=== PATIENT | female | born 1990 | race Caucasian/White ===

== ENCOUNTER 2017-08-26 05:37 | Inpatient (IN) | payer MEDICAID ==
[2017-08-26] VITALS (30 sets, daily range): BP systolic 103–121; BP diastolic 54–75; PULSE 75–97; RESP 8–18; TEMP 97.6–98.5; O2SAT 97–100
[~2017-08-26] VITALS: Ht 170.2 cm; Wt 101.0 kg
[~2017-08-26 05:37] MED LIST: IBUP600 PO; PREN0.01 PO
[2017-08-26] MEDS ORDERED: LACTATED RINGER'S 1000 ML IV ONE (06:00)
[2017-08-26] MEDS ORDERED: LACTATED RINGER'S 1000 ML IV SCH (06:00)
[2017-08-26] MEDS ORDERED: CITRIC ACID-SODIUM CITRATE LIQ 30 ML UDC PO SCH (06:00)
[2017-08-26] MEDS ORDERED: CLINDAMYCIN 600 MG/NS 100 ML IV SCH ×2 (06:00)
[2017-08-26 06:22] LABS: AUTOMATED NEUTROPHIL # 5.4 TH/MM3 (1.8-7.7); BASOPHIL % 0.2 % (0.0-2.0); EOSINOPHIL # 0.1 TH/MM3 (0-0.4); EOSINOPHIL % 1.3 % (0.0-4.0); HEMATOCRIT 27.9 % (35.0-46.0); HEMOGLOBIN 9.5 GM/DL (11.6-15.3); LYMPHOCYTE # 2.2 TH/MM3 (1.0-4.8); MEAN CELL VOLUME 80.8 FL (80.0-100.0); MEAN CORPUSCULAR HEMOGLOBIN 27.5 PG (27.0-34.0); MEAN PLATELET VOLUME 7.1 FL (7.0-11.0); MONO % 5.3 % (0.0-8.0); MONOCYTE # 0.4 TH/MM3 (0-0.9); NEUT % 66.2 % (16.0-70.0); PLATELET COUNT 289 TH/MM3 (150-450); RED BLOOD COUNT 3.45 MIL/MM3 (4.00-5.30); RED CELL DISTRIBUTION WIDTH 15.6 % (11.6-17.2); WHITE BLOOD COUNT 8.1 TH/MM3 (4.0-11.0)
[2017-08-26 06:29] LABS: BACTERIA, URINE FEW /hpf; BILIRUBIN, URINE NEG (NEG); BLOOD, URINE NEG (NEG); GLUCOSE,URINE NEG (NEG); KETONE, URINE NEG (NEG); MUCUS URINE FEW /lpf (OCC); NITRITE,URINE NEG (NEG); SQUAMOUS EPITHELIAL CELL URINE 8 /hpf (0-5); URINE COLOR YELLOW (YELLW/STRAW); URINE LEUKOCYTE ESTERASE MOD (NEG)
[2017-08-26] MEDS ORDERED: ACETAMINOPHEN 1000 MG/100 ML 100 ML IV ONE (06:43)
[2017-08-26] MEDS ORDERED: MORPHINE SULFATE PF 5 MG/10 ML VIAL ONE (06:43)
[2017-08-26] MEDS ORDERED: ROPIVACAINE 0.5% PF INJ 30 ML VIAL ONE (08:22)
[2017-08-26] MEDS ORDERED: DEXAMETHASONE SOD PHOS PF 10 MG/ML VIAL ONE (08:22)
[2017-08-26] MEDS ORDERED: KETOROLAC TROMETHAMINE 60 MG/2 ML (IM) VIAL IM PRN (08:30)
[2017-08-26] MEDS ORDERED: oxyCODONE/ACETAMINOPHEN 5 MG/325 MG TAB PO PRN (08:30)
[2017-08-26] MEDS ORDERED: ZOLPIDEM TARTRATE 5 MG TAB PO PRN (08:30)
[2017-08-26] MEDS ORDERED: SODIUM CHLORIDE 0.9% FLUSH 10 ML FLUSH IV FLUSH PRN (08:30)
[2017-08-26] MEDS ORDERED: OXYTOCIN 30 UNITS-500ML PREMIX 500 ML IV ONE (08:30)
[2017-08-26] MEDS ORDERED: ONDANSETRON HCL 4 MG/2 ML VIAL IV PUSH PRN (08:30)
[2017-08-26] MEDS ORDERED: ACETAMINOPHEN 325 MG TAB PO PRN (08:30)
[2017-08-26] MEDS ORDERED: SIMETHICONE 80 MG CHEWABLE TAB PO PRN (08:30)
--- NOTE | 2017-08-26 08:37 | MH ---
cc: GIULIANO SAHNI DATE OF ADMISSION: 08/26/2017 HISTORY OF PRESENT ILLNESS She is 27 years old, 3, para 1-0-1-1 with intrauterine at 39 weeks, desires repeat section. care has been with [facility] [employer] OPERATOR, uncomplicated. PAST OB HISTORY Significant for one at term for failure to progress and one SAB. PAST AQUACULTURE WORKER HISTORY Unremarkable. PAST MEDICAL HISTORY She denies hypertension, diabetes or asthma. PAST SURGICAL HISTORY Significant for a . SOCIAL HISTORY She denies toxic habits. MEDICATIONS She takes vitamins. ALLERGIES ALLERGIC TO PENICILLIN. States that her throat swells up, severe allergy. PHYSICAL EXAMINATION VITAL SIGNS: On physical exam her vital signs are stable. She is afebrile. HEAD, HEART, CHEST and LUNG EXAMS: Within normal limits. ABDOMEN: Soft, nontender, gravid. PELVIC EXAM: Deferred. EXTREMITIES: No edema, cyanosis, clubbing, nontender. ASSESSMENT AND PLAN She is 27 years old, 3, para 1-0-1-1 with intrauterine at 39 weeks for elective repeat section. The risks, benefits and alternatives have been explained to the patient. All of her questions have been answered and consents have been signed. MD STANLEY Ramos/RICK /8:13 AM /8:16 AM
--- NOTE | 2017-08-26 08:51 | MP ---
cc: GIULIANO CORONADO DATE OF SURGERY: 08/26/2017 PREOPERATIVE DIAGNOSIS Intrauterine at 39-weeks, desires elective repeat section. POSTOPERATIVE DIAGNOSIS Intrauterine at 39-weeks, desires elective repeat section. PROCEDURE Repeat lower segment transverse section via Pfannenstiel skin incision. SURGEON Dr. Coronado ANESTHESIA Spinal. FLUIDS 1700 ccs crystalloid. ESTIMATED BLOOD LOSS 800 ccs. URINE OUTPUT 200 ccs clear yellow at the end of the procedure. FINDINGS A live male was delivered vertex presentation. weight was 3900 grams, 8 pounds 10 ounces. PROCEDURE The patient was taken to the operating room where spinal anesthesia was found to be adequate. She was then prepped and draped in the normal sterile fashion in the dorsal supine position with a leftward tilt. A Pfannenstiel skin incision was made with a scalpel and carried down to the underlying layer of fascia. The fascia was nicked in the midline. The incision was extended laterally with curved Llamas scissors. Attention was turned to the inferior aspect of the incision which was grasped with Aaron clamps, elevated and the rectus muscles dissected off sharply. Attention was turned to the superior aspect of the incision which was grasped with Aaron clamps, elevated and the rectus muscles dissected off sharply. The rectus muscles were in the midline and the peritoneum was identified, grasped between two Jacqueline clamps, elevated and entered sharply with Metzenbaum scissors. This incision was extended superiorly and inferiorly with good visualization of the bladder. The bladder blade was inserted. The vesicouterine peritoneum was identified, grasped with pickups and entered sharply with Metzenbaum scissors. This incision was extended laterally and bladder flap created digitally. The lower uterine segment was incised in a transverse fashion with a scalpel. Clear amniotic fluid was noted. The incision was extended laterally with bandage scissors. The vertex was delivered. The oral and nasopharynx were bulb suctioned with a syringe. The shoulders were delivered atraumatically. The cord was clamped x2 and cut after waiting for 45 seconds. The placenta was delivered manually and sent for donation. The uterus was cleared of all clots and debris. The uterine incision was repaired in two layers with one Vicryl. Hemostasis was assured. The gutters were cleared of all clots and debris. The fascia was reapproximated in a running fashion with 0 Vicryl. The skin incision was closed with jonathan. A pressure dressing was applied. The sponge, lap, needle and instrument counts were correct x3. The patient was transferred to the recovery room in stable condition. MD STANLEY Ramos/STEFANIE /8:15 AM /8:21 AM
[2017-08-26] MEDS: SODIUM CHLORIDE 0.9% FLUSH 10 ML FLUSH IV FLUSH SCH ×2 (09:00→21:15)
[2017-08-26] MEDS ORDERED: PROMETHAZINE INJ 25 MG/ML VIAL IM PRN (11:15)
[2017-08-26] MEDS ORDERED: PHENYLEPH/NS 1000 MCG/10 ML SYR IV ONE (12:00)
[2017-08-26] MEDS ORDERED: ePHEDrine/NS 25 MG/5 ML SYRINGE IV ONE (12:00)
[2017-08-26] MEDS ORDERED: OXYTOCIN 10 UNIT/ML AMP IV ONE (12:00)
[2017-08-26] MEDS ORDERED: ONDANSETRON HCL 4 MG/2 ML VIAL IV ONE (12:00)
[2017-08-26] MEDS ORDERED: LACTATED RINGER'S 1000 ML INJ 2,000 ML IV ONE (12:00)
[2017-08-26] MEDS ORDERED: DEXAMETHASONE SOD PHOS 4 MG/ML VIAL IV ONE (12:00)
[2017-08-26] MEDS ORDERED: LACTATED RINGER'S 1000 ML INJ 1,000 ML IV SCH (13:23)
[2017-08-26] MEDS ORDERED: OXYTOCIN 30 UNITS-500ML PREMIX 500 ML IV PRN (18:30)
[2017-08-26] MEDS: IBUPROFEN 600 MG TAB PO PRN (22:47)
[2017-08-27 01:00] VITALS: BP 109/62; PULSE 56; RESP 16; TEMP 97.9
[2017-08-27 05:48] LABS: AUTOMATED NEUTROPHIL # 6.6 TH/MM3 (1.8-7.7); BASOPHIL % 0.1 % (0.0-2.0); EOSINOPHIL % 0.2 % (0.0-4.0); LYMPH % 22.5 % (9.0-44.0); LYMPHOCYTE # 2.1 TH/MM3 (1.0-4.8); MEAN CELL VOLUME 81.8 FL (80.0-100.0); MEAN CORPUSCULAR HEMOGLOBIN 26.9 PG (27.0-34.0); MEAN CORPUSCULAR HGB CONC 32.8 % (32.0-36.0); MEAN PLATELET VOLUME 7.1 FL (7.0-11.0); MONO % 6.6 % (0.0-8.0); MONOCYTE # 0.6 TH/MM3 (0-0.9); NEUT % 70.6 % (16.0-70.0); PLATELET COUNT 186 TH/MM3 (150-450); RED BLOOD COUNT 2.41 MIL/MM3 (4.00-5.30); RED CELL DISTRIBUTION WIDTH 15.8 % (11.6-17.2); WHITE BLOOD COUNT 9.4 TH/MM3 (4.0-11.0)
[2017-08-27 05:49] LABS: HEMOGLOBIN 6.5 GM/DL (11.6-15.3)
[2017-08-27 05:50] LABS: HEMATOCRIT 19.7 % (35.0-46.0)
[2017-08-27] MEDS: IBUPROFEN 600 MG TAB PO PRN ×3 (07:49→22:16)
[2017-08-27 08:00] VITALS: BP 120/73; PULSE 75; RESP 18; TEMP 97.8
--- NOTE | 2017-08-27 08:45 | HHI.OB ---
Subjective Post Operative Day: 1 Remarks up showering and feels well despite low hgb willing to take venifer Objective Vitals/I&O Vital Signs Date Time Temp Pulse Resp B/P (MAP) Pulse Ox O2 Delivery O2 Flow Rate FiO2 08/27/17 01:00 56 16 109/62 (78) 08/27/17 01:00 97.9 08/26/17 20:00 98.5 82 16 103/54 (70) 97 08/26/17 18:19 18 08/26/17 17:25 82 16 116/62 (80) 08/26/17 17:25 98.2 08/26/17 15:42 18 08/26/17 15:00 8 08/26/17 15:00 18 08/26/17 14:00 18 08/26/17 13:00 16 08/26/17 12:00 112/67 (82) 08/26/17 12:00 97.8 86 18 08/26/17 10:15 98.0 75 18 107/68 (81) 08/26/17 09:31 97.6 18 100 08/26/17 09:31 86 121/56 (77) 08/26/17 09:16 119/55 (76) 08/26/17 09:14 91 18 100 08/26/17 09:00 118/58 (78) 08/26/17 08:59 90 18 100 08/26/17 08:45 80 18 110/57 (74) 100 Result Diagram: 08/27/17 0525 Objective Remarks GENERAL: Well-nourished, well-developed patient. CARDIOVASCULAR: Regular rate and rhythm without murmurs, gallops, or rubs. RESPIRATORY: Breath sounds equal bilaterally. No accessory muscle use. ABDOMEN/GI: Abdomen soft, non-tender, bowel sounds present. Incision: Clean, dry and intact. Fundus: Firm, non-tender at umbilicus. GENITOURINARY: Light to moderate bleeding. EXTREMITIES: No cyanosis or edema, non-tender, without signs of DVT. Medications and IVs Current Medications Medications (Trade) Dose Ordered Sig/Sonido Route Start Time Stop Time Status Last Admin Lactated Ringer's 1,000 ml @ 100 mls/hr Q10H IV 08/26/17 13:23 08/27/17 09:22 Oxytocin 500 ml @ 100 mls/hr UNSCH X1 PRN IV 08/26/17 18:30 08/27/17 18:29 (NS Flush) 2 ml BID IV FLUSH 08/26/17 09:00 (NS Flush) 2 ml UNSCH PRN IV FLUSH 08/26/17 08:30 (Mylicon Chew) 80 mg QID PRN PO 08/26/17 08:30 (Tylenol) 650 mg Q6H PRN PO 08/26/17 08:30 (Motrin) 600 mg Q6H PRN PO 08/26/17 08:30 08/27/17 07:49 (Percocet 5-325 Mg) 1 tab Q4H PRN PO 08/26/17 08:30 (Percocet 5-325 Mg) 2 tab Q4H PRN PO 08/26/17 08:30 (Светлана-Colace) 2 tab Q12H PRN PO 08/26/17 08:30 (Ambien) 5 mg HS PRN PO 08/26/17 08:30 (M-M-R Ii Inj) 0.5 ml ONCE ONCE SQ 08/27/17 16:00 08/27/17 16:01 (Boostrix Inj) 0.5 ml ONCE ONCE IM 08/27/17 16:00 08/27/17 16:01 08/26/17 21:12 (Zofran Inj) 4 mg Q6H PRN IV PUSH 08/26/17 08:30 (Phenergan Inj) 25 mg Q4H PRN IM 08/26/17 11:15 08/26/17 11:19 (Venofer Inj) 200 mg ONCE ONCE IV PUSH 08/27/17 09:00 08/27/17 09:01 Assessment/Plan Assessment and Plan POD 1 doing well venifer then dc IV repeat cbc wednesday doesn't meet discharge criteria Jolie Poole MD Aug 27, 2017 08:45
[2017-08-27] MEDS ORDERED: IRON SUCROSE 100 MG/5 ML VIAL IV PUSH ONE (09:00)
[2017-08-27] MEDS: SODIUM CHLORIDE 0.9% FLUSH 10 ML FLUSH IV FLUSH SCH ×2 (10:04→19:16)
[2017-08-27] MEDS: oxyCODONE/ACETAMINOPHEN 5 MG/325 MG TAB PO PRN ×3 (11:57→22:17)
[2017-08-27] MEDS ORDERED: DIPHTH/TETANUS/ACEL PERTUSSIS (BOOSTER) 0.5 ML VIAL/PFS IM ONE (16:00)
[2017-08-27] MEDS ORDERED: MEASLES, MUMPS, RUBELLA VACCINE 0.5 ML VIAL SQ ONE (16:00)
[2017-08-27] MEDS: DOCUSATE SODIUM 50 MG/SENNA 8.6 MG TAB PO PRN (19:19)
[2017-08-27 20:00] VITALS: BP 124/71; PULSE 76; RESP 18; TEMP 98.2
[2017-08-28] MEDS: IBUPROFEN 600 MG TAB PO PRN ×3 (04:54→20:12)
[2017-08-28] MEDS: oxyCODONE/ACETAMINOPHEN 5 MG/325 MG TAB PO PRN (04:55)
[2017-08-28 06:07] LABS: AUTOMATED NEUTROPHIL # 3.9 TH/MM3 (1.8-7.7); BASOPHIL % 0.2 % (0.0-2.0); EOSINOPHIL # 0.1 TH/MM3 (0-0.4); EOSINOPHIL % 1.6 % (0.0-4.0); HEMATOCRIT 21.3 % (35.0-46.0); LYMPH % 37.7 % (9.0-44.0); LYMPHOCYTE # 2.7 TH/MM3 (1.0-4.8); MEAN CELL VOLUME 82.4 FL (80.0-100.0); MEAN CORPUSCULAR HEMOGLOBIN 27.2 PG (27.0-34.0); MEAN PLATELET VOLUME 7.3 FL (7.0-11.0); MONO % 6.1 % (0.0-8.0); MONOCYTE # 0.4 TH/MM3 (0-0.9); NEUT % 54.4 % (16.0-70.0); PLATELET COUNT 208 TH/MM3 (150-450); RED BLOOD COUNT 2.59 MIL/MM3 (4.00-5.30); RED CELL DISTRIBUTION WIDTH 15.9 % (11.6-17.2); WHITE BLOOD COUNT 7.2 TH/MM3 (4.0-11.0)
[2017-08-28] MEDS: SODIUM CHLORIDE 0.9% FLUSH 10 ML FLUSH IV FLUSH SCH ×2 (07:25→21:00)
[2017-08-28 08:00] VITALS: BP 109/71; PULSE 68; RESP 16; TEMP 97.6
[2017-08-28] MEDS: DOCUSATE SODIUM 50 MG/SENNA 8.6 MG TAB PO PRN (11:29)
--- NOTE | 2017-08-28 14:54 | HHI.OB ---
Subjective Post Operative Day: 2 Remarks Doing well, No SOB or dizziness or chest pain Bleeding is good Baby is doing well Pain is well controlled. Objective Vitals/I&O Vital Signs Date Time Temp Pulse Resp B/P (MAP) Pulse Ox O2 Delivery O2 Flow Rate FiO2 08/28/17 08:00 68 16 109/71 (84) 08/28/17 08:00 97.6 08/27/17 20:00 76 18 124/71 (88) 08/27/17 20:00 98.2 Result Diagram: 08/28/17 0508 Objective Remarks GENERAL: Well-nourished, well-developed patient. CARDIOVASCULAR: Regular rate and rhythm without murmurs, gallops, or rubs. RESPIRATORY: Breath sounds equal bilaterally. No accessory muscle use. ABDOMEN/GI: Abdomen soft, non-tender, bowel sounds present. Incision: Clean, dry and intact. [place] are intact Fundus: Firm, non-tender at umbilicus. GENITOURINARY: Light to moderate bleeding. EXTREMITIES: No cyanosis or edema, non-tender, without signs of DVT. Medications and IVs Current Medications Medications (Trade) Dose Ordered Sig/Sonido Route Start Time Stop Time Status Last Admin (NS Flush) 2 ml BID IV FLUSH 08/26/17 09:00 08/27/17 10:04 (NS Flush) 2 ml UNSCH PRN IV FLUSH 08/26/17 08:30 (Mylicon Chew) 80 mg QID PRN PO 08/26/17 08:30 (Tylenol) 650 mg Q6H PRN PO 08/26/17 08:30 (Motrin) 600 mg Q6H PRN PO 08/26/17 08:30 08/28/17 11:29 (Percocet 5-325 Mg) 1 tab Q4H PRN PO 08/26/17 08:30 08/28/17 04:55 (Percocet 5-325 Mg) 2 tab Q4H PRN PO 08/26/17 08:30 (Светлана-Colace) 2 tab Q12H PRN PO 08/26/17 08:30 08/28/17 11:29 (Ambien) 5 mg HS PRN PO 08/26/17 08:30 (Zofran Inj) 4 mg Q6H PRN IV PUSH 08/26/17 08:30 (Phenergan Inj) 25 mg Q4H PRN IM 08/26/17 11:15 08/26/17 11:19 Assessment/Plan Assessment and Plan POD 2 Severe anemia will give another dose of venofer today Remove jonathan tomorrow am and d/c home on fe Mariella French MD Aug 28, 2017 14:54
[2017-08-28] MEDS ORDERED: IRON SUCROSE 100 MG/5 ML VIAL IV PUSH ONE (15:00)
[2017-08-28] MEDS ORDERED: IBUP-232 PO (15:19)
[2017-08-28] MEDS ORDERED: OXYC1TAB63 PO (15:19)
--- NOTE | 2017-08-28 15:20 | HHI.DCPOC ---
Discharge Care Plan Diagnosis: (1) Anemia (2) S/P repeat low transverse Report Symptoms to Your Doctor -Temperature above 100.5 degrees -Redness, of incision or excessive or foul smelling drainage -Unusual pain or calf pain -Increased vaginal bleeding -Painful or difficulty urinating -Feelings of extreme sadness or anxiety after 2 weeks Goals to Promote Your Health * To prevent worsening of your condition and complications * To maintain your health at the optimal level Directions to Meet Your Goals Take your medications as prescribed Follow your dietary instruction Follow activity as directed Ensure plenty of rest for recovery Drink fluids for hydration Keep your appointments as scheduled Take your immunizations and boosters as scheduled If your symptoms worsen call your PCP, if no PCP go to Urgent Care Center or Emergency Room Smoking is Dangerous to Your Health. Avoid second hand smoke Call the 24-hour crisis hotline for domestic abuse at Mariella French MD Aug 28, 2017 15:20
--- NOTE | 2017-08-28 15:31 | HHI.DCPOC ---
Discharge Care Plan Diagnosis: (1) S/P repeat low transverse (2) Anemia Report Symptoms to Your Doctor -Temperature above 100.5 degrees -Redness, of incision or excessive or foul smelling drainage -Unusual pain or calf pain -Increased vaginal bleeding -Painful or difficulty urinating -Feelings of extreme sadness or anxiety after 2 weeks Goals to Promote Your Health * To prevent worsening of your condition and complications * To maintain your health at the optimal level Directions to Meet Your Goals Take your medications as prescribed Follow your dietary instruction Follow activity as directed Ensure plenty of rest for recovery Drink fluids for hydration Keep your appointments as scheduled Take your immunizations and boosters as scheduled If your symptoms worsen call your PCP, if no PCP go to Urgent Care Center or Emergency Room Smoking is Dangerous to Your Health. Avoid second hand smoke Call the 24-hour crisis hotline for domestic abuse at Mariella French MD Aug 28, 2017 15:31
--- NOTE | 2017-08-28 16:07 | HHI.PR ---
Objective Vital Signs Date Time Temp Pulse Resp B/P (MAP) Pulse Ox O2 Delivery O2 Flow Rate FiO2 08/28/17 08:00 68 16 109/71 (84) 08/28/17 08:00 97.6 08/27/17 20:00 76 18 124/71 (88) 08/27/17 20:00 98.2 Result Diagram: 08/28/17 0508 Assessment and Plan Assessment and Plan Pt is upset that she can't go home today. Explained she has severe anemia to the point that some would give her blood transfusion She is only day #2 and still has her jonathan in too. Will check her CBC in the am and let her go if it is stable. Mariella French MD Aug 28, 2017 16:07
[2017-08-28 20:31] VITALS: BP 116/75; PULSE 80; RESP 16; TEMP 98.9
[2017-08-29 06:30] LABS: HEMATOCRIT 21.4 % (35.0-46.0); MEAN CELL VOLUME 82.8 FL (80.0-100.0); MEAN CORPUSCULAR HEMOGLOBIN 27.1 PG (27.0-34.0); MEAN CORPUSCULAR HGB CONC 32.8 % (32.0-36.0); MEAN PLATELET VOLUME 6.7 FL (7.0-11.0); PLATELET COUNT 200 TH/MM3 (150-450); RED BLOOD COUNT 2.58 MIL/MM3 (4.00-5.30); RED CELL DISTRIBUTION WIDTH 15.6 % (11.6-17.2); WHITE BLOOD COUNT 5.1 TH/MM3 (4.0-11.0)
[2017-08-29] MEDS: IBUPROFEN 600 MG TAB PO PRN (06:36)
[2017-08-29 08:00] VITALS: BP 111/71; PULSE 93; RESP 20; TEMP 96.3; O2SAT 0
== END 2017-08-29 11:39 | disposition home or self-care (01) | DRG 766 ==
LOC: H2EB 05:37 → H1EA 09:51 → HNUR 18:35 → H1EA 18:52
PROVIDERS: ADMIT Obstetrics & Gynecology; ATTEND Obstetrics & Gynecology
PROC: 10D00Z1 Extraction of Products of Conception, Low, Open Approach (ICD-10-PCS; principal; 2017-08-26)
DX: O34.211 Maternal care for low transverse scar from previous cesarean delivery (principal); D64.9 Anemia, unspecified; O99.02 Anemia complicating childbirth; Z37.0 Single live birth; Z3A.39 39 weeks gestation of pregnancy
CPT/HCPCS: 59025; 80307; 81001; 85025; 85027; 86850; 86900; 86901; 90715; J0131; J1100; J1756; J2274; J2370; J2405; J2550; J2590; J2795; J3010; J7120